=== PATIENT | female | born 1985 | race Two or more races ===

== ENCOUNTER 2016-12-08 14:10 | Observation (INO) | payer MEDICAID ==
[~2016-12-08 14:10] MED LIST: PREN-96 PO
== END 2016-12-08 15:30 | disposition home or self-care (01) | DRG 566 ==
LOC: LDRP 14:10
PROVIDERS: ADMIT Specialist; ATTEND Specialist
DX: O26.893 Other specified pregnancy related conditions, third trimester (principal); N89.8 Other specified noninflammatory disorders of vagina; O42.92 Full-term premature rupture of membranes, unspecified as to length of time between rupture and onset of labor; R10.9 Unspecified abdominal pain; Z87.891 Personal history of nicotine dependence; Z3A.39 39 weeks gestation of pregnancy; O62.9 Abnormality of forces of labor, unspecified
CPT/HCPCS: 59025; 81002; G0378

== ENCOUNTER 2016-12-09 22:00 | Inpatient (IN) | payer MEDICAID ==
[~2016-12-09] VITALS: Ht 165.1 cm; Wt 126.1 kg
[2016-12-09] MEDS ORDERED: TERBUTALINE SULFATE 1 MG/ML 1ML VIAL SC ONE (23:41)
[2016-12-10] VITALS (11 sets, daily range): BP systolic 106–129; BP diastolic 60–81
[2016-12-10] MEDS: LACTATED RINGER'S 1,000 ML IV SCH ×4 (00:07→23:55)
[2016-12-10] MEDS ORDERED: MIDAZOLAM HCL 1MG/1ML-2 ML VIAL ONE (00:44)
[2016-12-10] MEDS ORDERED: MORPHINE SULF(PF) 0.5MG/ML 10ML VIAL ONE (00:44)
[2016-12-10] MEDS ORDERED: fentaNYL CITRATE 100 MCG/2 ML VL ONE (00:44)
[2016-12-10] MEDS ORDERED: ceFAZolin 1GM VL ONE (00:47)
[2016-12-10] MEDS ORDERED: OXYTOCIN 10 UNIT/ML 10ML VIAL ONE (00:47)
[2016-12-10] MEDS ORDERED: SODIUM CHLORIDE LOCK 20 ML ONE (00:47)
[2016-12-10] MEDS ORDERED: ONDANSETRON HCL 4 MG/2 ML VIAL ONE ×2 (00:47→04:07)
[2016-12-10] MEDS ORDERED: TETRACAINE 1% INJ 2 ML VIAL IJ ONE (00:48)
[2016-12-10 00:56] LABS: Basophils # (auto) 0 uL; Basophils % (auto) 0.3 % (0.0-2.0); Eosinophils # (auto) 0 uL; Eosinophils % (auto) 0.3 % (0.0-7.0); Hematocrit 35.7 % (36.0-46.0); Hemoglobin 11.7 g/dL (12.2-16.2); Lymphocytes # (auto) 2.9 uL; Lymphocytes % (auto) 25.5 % (10.0-50.0); Mean Corpuscular Hemoglobin 28.9 pg (28.0-32.0); Mean Corpuscular Hgb Conc. 32.8 g/dL (32.0-36.0); Mean Platelet Volume 9.1 fL (7.4-10.4); Monocytes # (auto) 0.7 uL; Monocytes % (auto) 5.9 % (0.0-12.0); Neutrophils # (auto) 7.7 uL; Platelet Count (auto) 255 10^3/uL (140-450); Red Cell Distribution Width 14.5 % (11.6-16.0); White Blood Cell 11.3 10^3/uL (4.4-10.8)
[2016-12-10] MEDS ORDERED: CLINDAMYCIN 600MG IV 50 ML IV ONE (01:06)
[2016-12-10 01:11] LABS: INR 0.93 (0.9-1.15); Partial Thromboplastin Time 27.5 sec (22.64-33.71)
[2016-12-10 01:20] LABS: Albumin 2.4 g/dL (3.4-5.0); Calcium 8.3 mg/dL (8.5-10.1); Potassium 3.7 mmol/L (3.5-5.1)
[2016-12-10 01:23] LABS: BUN/Creatinine Ratio 12.8
[2016-12-10 01:25] LABS: Bilirubin, Total 0.2 mg/dL (0.2-1.0); Total Protein 6.3 g/dL (6.4-8.2)
[2016-12-10 01:33] LABS: Urine Bilirubin Negative (Negative); Urine Blood Negative /uL (Negative); Urine Color Yellow (Yellow); Urine Glucose Normal (Normal); Urine Ketone Negative (Negative); Urine Mucus FEW (None Seen); Urine Nitrite Negative (Negative); Urine RBC 1 /hpf (0 - 4); Urine Squamous Epithelial Cell FEW /hpf (<5); Urine Urobilinogen Normal (Negative); Urine pH 6.5 (5.0-8.0)
[2016-12-10] MEDS ORDERED: ERYTHROMY OPTH OINT 5mg/gm 1gm OP ONE (02:45)
[2016-12-10] MEDS ORDERED: HYDROmorphone HCL 2 MG/ML VL IV PRN ×2 (02:45→03:15)
[2016-12-10] MEDS ORDERED: KETOROLAC TROMETH 30 MG/ML 1ML VIAL IV PRN (02:45)
[2016-12-10] MEDS ORDERED: MORPHINE SULF INJ 2 MG/ML SYRINGE 1ML IV PRN (02:45)
[2016-12-10] MEDS ORDERED: ONDANSETRON HCL 4 MG/2 ML VIAL IV PRN (02:45)
[2016-12-10] MEDS ORDERED: PHYTONADIONE 1MG/0.5ML SYRINGE NEONATAL ONE (02:46)
[2016-12-10] MEDS ORDERED: diphenhdrAMINE HCL 50 MG/1 ML VL IV PRN (03:15)
[2016-12-10] MEDS ORDERED: NALOXONE HCL 0.4 MG/ML VIAL IV PRN (03:15)
[2016-12-10] MEDS ORDERED: METOCLOPRAMIDE HCL 5MG/ml INJ 2ml VIAL IV ONE (03:15)
[2016-12-10] MEDS ORDERED: KETOROLAC TROMETH 30 MG/ML 1ML VIAL IV ONE (03:15)
[2016-12-10] MEDS: LACT. RINGERS/OXYTOCIN 20UNITS 1,000 ML IV SCH ×6 (06:00→23:15)
[2016-12-10] MEDS ORDERED: CLINDAMYCIN 900MG IV 50 ML IV SCH (06:00)
[2016-12-10] MEDS: CLINDAMYCIN 900MG IV 50 ML IV SCH ×2 (10:07→17:51)
[2016-12-10 14:27] LABS: Basophils # (auto) 0 uL; Eosinophils # (auto) 0 uL; Hematocrit 35.1 % (36.0-46.0); Hemoglobin 11.7 g/dL (12.2-16.2); Lymphocytes # (auto) 1.3 uL; Lymphocytes % (auto) 6.4 % (10.0-50.0); Mean Corpuscular Hemoglobin 29.2 pg (28.0-32.0); Mean Corpuscular Hgb Conc. 33.2 g/dL (32.0-36.0); Mean Corpuscular Volume 87.8 fL (80.0-100.0); Mean Platelet Volume 8.7 fL (7.4-10.4); Monocytes # (auto) 0.8 uL; Monocytes % (auto) 3.8 % (0.0-12.0); Neutrophils # (auto) 17.9 uL; Neutrophils % (auto) 89.8 % (37.0-80.0); Platelet Count (auto) 260 10^3/uL (140-450); Red Cell Distribution Width 14.2 % (11.6-16.0)
[2016-12-10] MEDS ORDERED: BISACODYL 10 MG RECT SUPP PR PRN ×2 (14:45→14:56)
[2016-12-10] MEDS: IBUPROFEN 800 MG TAB PO PRN (16:08)
[2016-12-10] MEDS: SIMETHICONE 80 MG CHEWABLE TABLET PO SCH ×2 (17:56→22:00)
[2016-12-10] MEDS: DOCUSATE SOD 100 MG CAP PO SCH (22:00)
[2016-12-11 02:50] VITALS: BP 136/78
[2016-12-11] MEDS: CLINDAMYCIN 900MG IV 50 ML IV SCH (02:50)
[2016-12-11] MEDS: HYDROcodone-ACET 10/325MG TAB PO PRN ×3 (02:50→19:01)
[2016-12-11] MEDS: LACTATED RINGER'S 1,000 ML IV SCH ×2 (05:05→15:05)
[2016-12-11] MEDS: LACT. RINGERS/OXYTOCIN 20UNITS 1,000 ML IV SCH ×5 (05:25→22:00)
[2016-12-11] MEDS: SIMETHICONE 80 MG CHEWABLE TABLET PO SCH ×4 (06:00→22:00)
[2016-12-11 06:30] VITALS: BP 127/75
[2016-12-11 07:15] LABS: Basophils # (auto) 0.1 uL; Basophils % (auto) 0.4 % (0.0-2.0); Eosinophils # (auto) 0 uL; Eosinophils % (auto) 0.1 % (0.0-7.0); Hematocrit 32.1 % (36.0-46.0); Hemoglobin 10.9 g/dL (12.2-16.2); Lymphocytes # (auto) 2.2 uL; Lymphocytes % (auto) 16.6 % (10.0-50.0); Mean Corpuscular Hemoglobin 29.3 pg (28.0-32.0); Mean Corpuscular Hgb Conc. 33.8 g/dL (32.0-36.0); Mean Corpuscular Volume 86.8 fL (80.0-100.0); Mean Platelet Volume 8.4 fL (7.4-10.4); Monocytes # (auto) 0.9 uL; Monocytes % (auto) 6.5 % (0.0-12.0); Neutrophils # (auto) 10.2 uL; Neutrophils % (auto) 76.4 % (37.0-80.0); Platelet Count (auto) 269 10^3/uL (140-450); Red Cell Distribution Width 14.4 % (11.6-16.0); White Blood Cell 13.4 10^3/uL (4.4-10.8)
[2016-12-11] MEDS: IBUPROFEN 800 MG TAB PO PRN ×2 (08:53→16:44)
[2016-12-11] MEDS ORDERED: DOCUSATE CALCIUM 240 MG CAP PO PRN (10:00)
[2016-12-11] MEDS: DOCUSATE SOD 100 MG CAP PO SCH ×2 (10:12→22:00)
[2016-12-11 11:30] VITALS: BP 104/72
[2016-12-11 15:30] VITALS: BP 134/92
[2016-12-11 20:04] VITALS: BP 130/80
[2016-12-12] MEDS: HYDROcodone-ACET 10/325MG TAB PO PRN ×4 (00:06→19:39)
[2016-12-12] MEDS: IBUPROFEN 800 MG TAB PO PRN ×2 (02:55→22:32)
[2016-12-12 07:15] VITALS: BP 119/68
[2016-12-12] MEDS ORDERED: TETANUS-DIPTH-ACEL PERTUSSIS 0.5ML SYRG IM ONE (07:30)
[2016-12-12] MEDS: SIMETHICONE 80 MG CHEWABLE TABLET PO SCH ×4 (09:24→22:13)
[2016-12-12] MEDS: DOCUSATE SOD 100 MG CAP PO SCH ×2 (10:24→22:13)
[2016-12-12] MEDS: LACTATED RINGER'S 1,000 ML IV SCH (10:26)
[2016-12-12] MEDS ORDERED: KETOROLAC TROMETH 30 MG/ML 1ML VIAL IV PRN (11:45)
[2016-12-12] MEDS ORDERED: KETOROLAC TROMETH 30 MG/ML 1ML VIAL IM PRN (11:45)
[2016-12-12 12:00] VITALS: BP 99/48
[2016-12-12 16:27] VITALS: BP 121/73
[2016-12-12 22:30] VITALS: BP 129/80
[2016-12-13 02:35] VITALS: BP 124/74
[2016-12-13] MEDS: HYDROcodone-ACET 10/325MG TAB PO PRN ×2 (02:41→09:12)
[2016-12-13] MEDS ORDERED: LACTATED RINGER'S 1,000 ML IV SCH (05:05)
[2016-12-13] MEDS: SIMETHICONE 80 MG CHEWABLE TABLET PO SCH (06:00)
[2016-12-13 07:53] VITALS: BP 135/89
[2016-12-13] MEDS: DOCUSATE SOD 100 MG CAP PO SCH (10:53)
== END 2016-12-13 12:10 | disposition home or self-care (01) | DRG 540 ==
LOC: LDRP 22:00 → OBSVTOIN 22:00 → LDRP 12-10 02:32
PROVIDERS: ADMIT Obstetrics & Gynecology; ATTEND Obstetrics & Gynecology
PROC: 10D00Z1 Extraction of Products of Conception, Low, Open Approach (ICD-10-PCS; principal; 2016-12-10 01:27)
DX: O36.63X0 Maternal care for excessive fetal growth, third trimester, not applicable or unspecified (principal); Z68.42 Body mass index [BMI] 45.0-49.9, adult; E66.01 Morbid (severe) obesity due to excess calories; O99.214 Obesity complicating childbirth; Z3A.39 39 weeks gestation of pregnancy; Z37.0 Single live birth; Z91.19 Patient's noncompliance with other medical treatment and regimen; Z23 Encounter for immunization
CPT/HCPCS: 36415; 51702; 59025; 80053; 80307; 81001; 85025; 85610; 85730; 86850; 86900; 86901; 90715; 94762; 96361; 96366; 96372; 96375; G0378; J0690; J1885; J2250; J2405; J2590; J3490